=== PATIENT | female | born 1955 | race Caucasian/White ===

== ENCOUNTER 2018-07-26 07:19 | Day surgery (SDC) | payer MEDICARE ==
[2018-07-26] VITALS (16 sets, daily range): BP systolic 135–185; BP diastolic 72–101
[~2018-07-26] VITALS: Ht 172.7 cm; Wt 71.8 kg
[~2018-07-26 07:19] MED LIST: CYAN1TAB41 PO; DOXY100C43 PO; LACT1CAP65 PO; LEVO75TA7 PO; LOPE2CAP PO; MULT-1085 PO; POTA10TA10 PO; SIME125C43 PO; TRAZ-218 PO; [UNRECOGNIZED DRUG - OTHER] PO
[2018-07-26] MEDS ORDERED: normal saline 1000ml 1,000 ML IV PRN (07:40)
[2018-07-26] MEDS ORDERED: ACET-1008 PO (08:08)
[2018-07-26] MEDS ORDERED: ONDA4TAB12 PO (08:08)
[2018-07-26 08:40] LABS: BASOPHILS # (AUTO) 0.1 X10'3 (0-0.2); BASOPHILS % (AUTO) 0.8 % (0-1); EOSINOPHILS # (AUTO) 0.1 X10'3 (0-0.9); EOSINOPHILS % (AUTO) 1.5 % (0-6); LYMPHOCYTES % (AUTO) 16.6 % (21-51); MEAN CORPUSCULAR HEMOGLOBIN 29.8 PG (27.0-31.0); MEAN CORPUSCULAR HGB CONC 33.4 % (33.0-36.5); MEAN CORPUSCULAR VOLUME 89.3 FL (78-98); MEAN PLATELET VOLUME 8.4 FL (7.4-10.4); MONOCYTES # (AUTO) 0.5 X10'3 (0-0.9); MONOCYTES % (AUTO) 7.6 % (2-12); NEUTROPHILS # (AUTO) 4.6 X10'3 (1.8-7.7); NEUTROPHILS % (AUTO) 73.5 % (42-75); PRE OP HEMATOCRIT 41.6 % (35.0-45.0); PRE OP HEMOGLOBIN 13.9 g/dL (12.0-16.0); PRE OP PLATELET COUNT 227 X10'3 (140-440); RED BLOOD COUNT 4.66 X10'6 (4.20-5.60); RED CELL DISTRIBUTION WIDTH 14.7 % (11.5-14.5)
[2018-07-26] MEDS ORDERED: midazolam 2 mg/2 ml injection IV PRN (08:50)
[2018-07-26] MEDS ORDERED: fentaNYL/PF 50MCG/1 ML 2ML syringe IV PRN (08:50)
[2018-07-26 08:55] LABS: ALBUMIN 3.4 G/DL (3.4-5.0); ANION GAP 13 (8-16); BLOOD UREA NITROGEN 9 MG/DL (7-18); BUN/CREATININE RATIO 13.8 (6.6-38.0); CALCIUM 8.7 MG/DL (8.5-10.1); CHLORIDE 106 MMOL/L (99-107); CREATININE 0.65 MG/DL (0.40-0.90); GLUCOSE 101 MG/DL (70-104); POTASSIUM 3.7 MMOL/L (3.5-5.1); SODIUM 142 MMOL/L (135-145); TOTAL CARBON DIOXIDE 23.4 MMOL/L (24-32); eGFR > 90 ML/MIN
[2018-07-26] MEDS ORDERED: midazolam 2 mg/2 ml injection ONE (08:55)
[2018-07-26] MEDS ORDERED: fentaNYL/PF 50MCG/1 ML 2ML syringe ONE (08:55)
[2018-07-26] MEDS ORDERED: LIDOcaine 1% (10mg/ml) 2ml vial ONE (08:56)
== END 2018-07-26 12:36 | disposition home or self-care (01) ==
LOC: SSTAY O 07:19
PROVIDERS: ATTEND Radiology Diagnostic Radiology
DX: C78.01 Secondary malignant neoplasm of right lung (principal); K21.0 Gastro-esophageal reflux disease with esophagitis; Z85.038 Personal history of other malignant neoplasm of large intestine; F17.210 Nicotine dependence, cigarettes, uncomplicated; Z88.6 Allergy status to analgesic agent; Z79.899 Other long term (current) drug therapy; Z98.890 Other specified postprocedural states
CPT/HCPCS: 32405; 36415; 71045; 77012; 80048; 85025; 99152; 99153; J2250; J3010; J3490; J7030; C1729; C1769

== ENCOUNTER 2021-07-06 07:30 | Inpatient (IN) | payer MEDICARE ==
[~2021-07-06] VITALS: Ht 172.7 cm; Wt 68.2 kg
[~2021-07-06 07:30] MED LIST changes: +ACET-1008 PO; -CYAN1TAB41 PO; -DOXY100C43 PO; -LACT1CAP65 PO; -LOPE2CAP PO; -MULT-1085 PO; +ONDA4TAB12 PO; -POTA10TA10 PO; -TRAZ-218 PO; +TRAZ-251 PO; -[UNRECOGNIZED DRUG - OTHER] PO
[2021-07-06 08:27] LABS: ALANINE AMINOTRANSFERASE 31 U/L (12-78); ALBUMIN 3.7 G/DL (3.4-5.0); ALBUMIN/GLOBULIN RATIO 1.1 (1.1-1.5); ALKALINE PHOSPHATASE 68 IU/L (46-116); ANION GAP 10 (8-16); ASPARTATE AMINO TRANSFERASE 18 U/L (10-37); BILIRUBIN,TOTAL 0.5 MG/DL (0.1-1.0); BLOOD UREA NITROGEN 17 MG/DL (7-18); BUN/CREATININE RATIO 16.5 (6.6-38.0); CALCIUM 9.7 MG/DL (8.5-10.1); CHLORIDE 104 MMOL/L (99-107); CREATININE 1.03 MG/DL (0.40-0.90); GLUCOSE 113 MG/DL (70-104); LIPASE 105 U/L (73-393); POTASSIUM 4.3 MMOL/L (3.5-5.1); SODIUM 140 MMOL/L (135-145); TOTAL PROTEIN 7.2 G/DL (6.4-8.2); eGFR 53 ML/MIN
[2021-07-06 08:28] LABS: BASOPHILS # (AUTO) 0.1 X10'3 (0-0.2); BASOPHILS % (AUTO) 1.2 % (0-1); EOSINOPHILS % (AUTO) 0.3 % (0-6); HEMATOCRIT 43.4 % (35.0-45.0); HEMOGLOBIN 14.7 g/dl (12.0-16.0); LYMPHOCYTES # (AUTO) 1.2 X10'3 (1.1-4.8); LYMPHOCYTES % (AUTO) 13.2 % (21-51); MEAN CORPUSCULAR HGB CONC 33.9 g/dL (33.0-36.5); MEAN CORPUSCULAR VOLUME 91.4 FL (78-98); MEAN PLATELET VOLUME 8.5 FL (7.4-10.4); MONOCYTES # (AUTO) 0.7 X10'3 (0-0.9); MONOCYTES % (AUTO) 8.2 % (2-12); NEUTROPHILS # (AUTO) 6.8 X10'3 (1.8-7.7); NEUTROPHILS % (AUTO) 77.1 % (42-75); PLATELET COUNT 254 X10'3 (140-440); RED BLOOD COUNT 4.75 X10'6 (4.20-5.60); RED CELL DISTRIBUTION WIDTH 15.2 % (11.5-14.5); WHITE BLOOD COUNT 8.8 X10'3 (4.5-11.0)
[2021-07-06 08:33] LABS: UA COLLECTION TYPE CLN CATCH MIDSTREAM
[2021-07-06 08:34] LABS: CLARITY,URINE CLOUDY (Clear); COLOR,URINE DARK YELLOW (Yellow); GLUCOSE, URINE NEGATIVE (Neg); KETONES,URINE NEGATIVE (Neg); LEUKOCYTE ESTERASE ,URINE TRACE (Neg); NITRITES, URINE NEGATIVE (Neg); OCCULT BLOOD,URINE NEGATIVE (Neg); PROTEIN,URINE 100 mg/dl (Neg); UROBILINOGEN,URINE 0.2 E.U/dL (0.2-1.0)
[2021-07-06 08:36] LABS: BACTERIA,URINE FEW /HPF (Neg); MUCUS STRANDS MANY /LPF (Neg); RBC,URINE NONE SEEN /HPF (0-2); SQUAMOUS EPITHELIAL CELL,UR FEW /LPF (FEW); WBC,URINE 0-4 /HPF (0-4)
[2021-07-06] MEDS ORDERED: ondansetron/PF 4mg/2ml inj IV ONE (09:00)
[2021-07-06] MEDS ORDERED: morphine 4 MG/ML inj SYRINge IV ONE (09:00)
[2021-07-06] MEDS ORDERED: diatr meglu/diatrizoate 30ml oral sol.-(3 dose) bottle PO SCH (09:00)
[2021-07-06] MEDS ORDERED: ketorolac tromethamine 15mg/ml inj. IV ONE (09:00)
[2021-07-06] MEDS ORDERED: normal saline 1000ML IV soln IVB ONE (09:00)
[2021-07-06] MEDS ORDERED: IOHEXOL 12MG/ML oral solution 500 ML BOTTLE PO ONE (09:25)
[2021-07-06 09:40] LABS: C-REACTIVE PROTEIN 0.12 MG/DL (0.0-0.5)
[2021-07-06] MEDS ORDERED: iohexol 300mg/ml 100ml inj. ONE (11:47)
[2021-07-06] MEDS ORDERED: magnesium 2GM in 50ml NS 50 ML IV PRN (13:05)
[2021-07-06] MEDS ORDERED: potassium Cl 40MEQ/1/2NS 520ml 520 ML IV PRN ×2 (13:05)
[2021-07-06] MEDS ORDERED: magnesium Cl slow-release 64mg tablet PO PRN (13:05)
[2021-07-06] MEDS ORDERED: potassium Cl 20 mEq SR tablet PO PRN ×2 (13:05)
[2021-07-06] MEDS ORDERED: magnesium 4gm in 100ml NS 100 ML IV PRN (13:05)
[2021-07-06] MEDS ORDERED: metoclopramide 5 mg/ml inj IV PRN (13:05)
[2021-07-06] MEDS ORDERED: TRAZ-251 PO (14:22)
[2021-07-06] MEDS ORDERED: LISI40TA13 PO (14:22)
[2021-07-06] MEDS ORDERED: LEVO75TA7 PO (14:22)
--- NOTE | 2021-07-06 17:21 | NUR ---
PAGER ID: [phone] MESSAGE: Samanta Villatorolaquitamati 350A Pt. 06/22 cramping pain in abd. No pain medications ordered. Med req not addressed. Can you change activity order to assist to BC? Any ATB for UTI? Thank you Priscila [id number]
[2021-07-06 17:22] VITALS: BP 144/51
[2021-07-06] MEDS: normal saline 1000ml 1,000 ML IV SCH (17:37)
[2021-07-06] MEDS: CefTRIAXone/D5W-Rocephin 1gm 50 ML IV SCH (17:38)
[2021-07-06] MEDS: HYDROmorphone inj. 0.5 MG/0.5 ML DISP.SYRIN IV PRN ×2 (17:43→23:42)
--- NOTE | 2021-07-06 19:05 | NUR ---
Gave report to Faiaz SMITH
[2021-07-06 19:30] VITALS: BP 143/60
--- NOTE | 2021-07-06 19:30 | NUR ---
n/g tube drainage has scan amt of dark brown drainage in canister & clear light green in tubing Addendum: 07/07/21 at 0153 by Ayesha Harrell RN Amended: Links added.
[2021-07-06] MEDS: K and/or MAG REPLACEMENT MC SCH (20:00)
[2021-07-07] VITALS (28 sets, daily range): BP systolic 110–181; BP diastolic 63–92
[2021-07-07] MEDS: ondansetron/PF 4mg/2ml inj IV PRN ×3 (00:07→15:26)
[2021-07-07] MEDS: normal saline 1000ml 1,000 ML IV SCH ×3 (04:58→19:05)
[2021-07-07] MEDS: HYDROmorphone inj. 0.5 MG/0.5 ML DISP.SYRIN IV PRN ×4 (06:00→20:18)
[2021-07-07 06:18] LABS: PARTIAL THROMBOPLASTIN TIME 27 SECONDS (22-32)
[2021-07-07 06:22] LABS: BASOPHILS % (AUTO) 0.4 % (0-1); EOSINOPHILS # (AUTO) 0.1 X10'3 (0-0.9); EOSINOPHILS % (AUTO) 1.7 % (0-6); HEMATOCRIT 36.3 % (35.0-45.0); HEMOGLOBIN 12.2 g/dl (12.0-16.0); LYMPHOCYTES # (AUTO) 1.2 X10'3 (1.1-4.8); LYMPHOCYTES % (AUTO) 28.1 % (21-51); MEAN CORPUSCULAR HEMOGLOBIN 30.9 PG (27.0-31.0); MEAN CORPUSCULAR HGB CONC 33.7 g/dL (33.0-36.5); MEAN CORPUSCULAR VOLUME 91.8 FL (78-98); MEAN PLATELET VOLUME 8.5 FL (7.4-10.4); MONOCYTES # (AUTO) 0.4 X10'3 (0-0.9); MONOCYTES % (AUTO) 10.8 % (2-12); NEUTROPHILS # (AUTO) 2.4 X10'3 (1.8-7.7); PLATELET COUNT 159 X10'3 (140-440); RED BLOOD COUNT 3.95 X10'6 (4.20-5.60); RED CELL DISTRIBUTION WIDTH 14.8 % (11.5-14.5); WHITE BLOOD COUNT 4.1 X10'3 (4.5-11.0)
[2021-07-07 06:37] LABS: ALANINE AMINOTRANSFERASE 22 U/L (12-78); ALBUMIN 2.6 G/DL (3.4-5.0); ALBUMIN/GLOBULIN RATIO 0.9 (1.1-1.5); ALKALINE PHOSPHATASE 53 IU/L (46-116); ANION GAP 8 (8-16); ASPARTATE AMINO TRANSFERASE 14 U/L (10-37); BILIRUBIN,TOTAL 0.4 MG/DL (0.1-1.0); BLOOD UREA NITROGEN 10 MG/DL (7-18); BUN/CREATININE RATIO 13.7 (6.6-38.0); CALCIUM 8.1 MG/DL (8.5-10.1); CHLORIDE 109 MMOL/L (99-107); CREATININE 0.73 MG/DL (0.40-0.90); GLUCOSE 88 MG/DL (70-104); POTASSIUM 3.8 MMOL/L (3.5-5.1); SODIUM 142 MMOL/L (135-145); TOTAL CARBON DIOXIDE 24.7 MMOL/L (24-32); TOTAL PROTEIN 5.4 G/DL (6.4-8.2); eGFR 79 ML/MIN
--- NOTE | 2021-07-07 06:48 | NUR ---
Patient in room [facility]. I have received report from LUIS Rodriguez and had the opportunity to ask questions and assume patient care. Addendum: 07/07/21 at 0650 by Melissa ADAMS Patient in room [facility]. I have received report from Faiza and had the opportunity to ask questions and assume patient care.
[2021-07-07] MEDS: K and/or MAG REPLACEMENT MC SCH ×2 (08:00→20:00)
[2021-07-07] MEDS: CefTRIAXone/D5W-Rocephin 1gm 50 ML IV SCH (09:09)
--- NOTE | 2021-07-07 14:32 | NUR ---
Patient taken down to OR. Report given to BREAKFAST MANAGER.
[2021-07-07] MEDS ORDERED: midazolam 1 mg/ML 2ml injection ONE (15:55)
[2021-07-07] MEDS ORDERED: fentaNYL /PF 50mcg/ml 5ml ampule ONE (15:55)
[2021-07-07] MEDS ORDERED: LIDOcaine 2% (20mg/ml) 5ml vial ONE (16:10)
[2021-07-07] MEDS ORDERED: rocuronium 10mg/ml inj IV ONE (16:10)
[2021-07-07] MEDS ORDERED: propofol inj 20 ML IV ONE (16:10)
[2021-07-07] MEDS ORDERED: ondansetron/PF 4mg/2ml inj IV PRN (16:50)
[2021-07-07] MEDS ORDERED: meperidine/PF 25mg/ml syringe IV PRN ×2 (16:50)
[2021-07-07] MEDS ORDERED: ringers solution, lacted 1,000 ML IV SCH (16:50)
[2021-07-07] MEDS ORDERED: proCHLORperazine 10 MG/2 ml inj IV PRN (16:50)
[2021-07-07] MEDS ORDERED: morphine 4 MG/ML inj SYRINge IV PRN (16:50)
[2021-07-07] MEDS ORDERED: morphine 2 MG/ML inj. syringe IV PRN (16:50)
[2021-07-07] MEDS ORDERED: sugammadex 200mg/2ml injection IV ONE (17:12)
--- NOTE | 2021-07-07 17:15 | NUR ---
Received from OR via , accompanied by Anesthesiologist DR BALLESTEROS and report given by Anesthesiolgist. PT PRESENTS WITH NEW 20 G RIGHT FOREARM, ABD DRESSING DRY AND INTACT. VSS. Addendum: 07/07/21 at 1738 by Josefina Evans RN, RN Amended: Links added.
[2021-07-07] MEDS: meperidine/PF 25mg/ml syringe IV PRN ×4 (17:39→18:45)
--- NOTE | 2021-07-07 18:25 | NUR ---
Problems reprioritized. Patient report given, questions answered & plan of care reviewed with LUIS Davalos.
--- NOTE | 2021-07-07 18:38 | NUR ---
Problems reprioritized. Patient report given, questions answered & plan of care reviewed with Robert Davalos.
--- NOTE | 2021-07-07 18:39 | NUR ---
Student documentation: I have reviewed and agree with all interventions, assessments performed and documented by SN Kaela. Student Medication Administration: For this medication-pass time frame, all medication were reviewed, dispensed, administered and documented per hospital policy by SN Kaela.
--- NOTE | 2021-07-07 19:35 | NUR ---
Patient in room [facility]. I have received report from Josefina SMITH and had the opportunity to ask questions and assume patient care.
--- NOTE | 2021-07-07 19:55 | NUR ---
Report called to receiving nurse CHAPIS SMITH. Transferred via HOSPITAL BED,Belongings WERE LEFT IN PT ROOM 350A. PT BED LOCKED AND IN LOW POSITION, PT HAS CALL LIGHT. CHAPIS SMITH AT BEDSIDE.. Special Issues communicated to receiving nurse. Addendum: 07/07/21 at 2006 by Josefina Evans RN, RN Amended: Links added.
[2021-07-07] MEDS: traZODone 50mg tablet PO SCH (20:19)
--- NOTE | 2021-07-07 23:23 | NUR ---
administered dilaudid as ordered at 2014 along with trazodone, though eMAR does not show that it was scanned. will administer the next dose as needed after 14
[2021-07-08 00:15] VITALS: BP 162/72
[2021-07-08] MEDS: ondansetron/PF 4mg/2ml inj IV PRN ×2 (00:26→16:01)
[2021-07-08] MEDS: HYDROmorphone inj. 0.5 MG/0.5 ML DISP.SYRIN IV PRN (00:26)
[2021-07-08] MEDS: normal saline 1000ml 1,000 ML IV SCH ×3 (02:36→15:09)
[2021-07-08] MEDS: HYDROmorphone 1 mg/ml syringe IV PRN ×3 (04:14→15:50)
[2021-07-08 06:50] LABS: BASOPHILS % (AUTO) 0.2 % (0-1); EOSINOPHILS % (AUTO) 0 % (0-6); HEMATOCRIT 36.7 % (35.0-45.0); HEMOGLOBIN 12.3 g/dl (12.0-16.0); LYMPHOCYTES # (AUTO) 0.5 X10'3 (1.1-4.8); LYMPHOCYTES % (AUTO) 5.6 % (21-51); MEAN CORPUSCULAR HEMOGLOBIN 30.9 PG (27.0-31.0); MEAN CORPUSCULAR HGB CONC 33.4 g/dL (33.0-36.5); MEAN CORPUSCULAR VOLUME 92.5 FL (78-98); MEAN PLATELET VOLUME 8.5 FL (7.4-10.4); MONOCYTES # (AUTO) 0.7 X10'3 (0-0.9); MONOCYTES % (AUTO) 7.6 % (2-12); NEUTROPHILS # (AUTO) 8.4 X10'3 (1.8-7.7); NEUTROPHILS % (AUTO) 86.6 % (42-75); PLATELET COUNT 165 X10'3 (140-440); RED BLOOD COUNT 3.97 X10'6 (4.20-5.60); RED CELL DISTRIBUTION WIDTH 15.4 % (11.5-14.5); WHITE BLOOD COUNT 9.7 X10'3 (4.5-11.0)
--- NOTE | 2021-07-08 06:59 | NUR ---
Problems reprioritized. Patient report given, questions answered & plan of care reviewed with Priscila SMITH.
[2021-07-08] MEDS ORDERED: HYDROmorphone 1 mg/ml syringe IV ONE (07:00)
[2021-07-08 07:05] LABS: ALBUMIN 2.5 G/DL (3.4-5.0); ANION GAP 12 (8-16); BLOOD UREA NITROGEN 7 MG/DL (7-18); BUN/CREATININE RATIO 10.1 (6.6-38.0); CALCIUM 7.7 MG/DL (8.5-10.1); CHLORIDE 110 MMOL/L (99-107); CREATININE 0.69 MG/DL (0.40-0.90); GLUCOSE 93 MG/DL (70-104); MAGNESIUM 1.8 MG/DL (1.5-2.4); POTASSIUM 3.7 MMOL/L (3.5-5.1); SODIUM 143 MMOL/L (135-145); TOTAL CARBON DIOXIDE 20.7 MMOL/L (24-32); eGFR 85 ML/MIN
[2021-07-08 08:00] VITALS: BP 135/63
[2021-07-08] MEDS: K and/or MAG REPLACEMENT MC SCH ×2 (08:00→20:00)
--- NOTE | 2021-07-08 08:09 | NUR ---
Rounded with Dr Winchester he would like me to check patient NG tube placement. Dr Winchester also stated that patient could have sips and chips. Informed primary LUIS Francois . Patients NG tube placement good I also irrigated with 30CC water and NG now has fluid coming out and working well. Primary RN Priscila is aware.
[2021-07-08] MEDS: levoTHYROXINE 75mcg tablet PO SCH (08:49)
[2021-07-08] MEDS: lisinopril 20mg tablet PO SCH (08:49)
--- NOTE | 2021-07-08 08:58 | NUR ---
PAGER ID: [phone] MESSAGE: May I please have a throat spray and cough drop order for 350A Samanta Lovell. She is complaining of sever sore throat. Priscila [id number]
[2021-07-08] MEDS: CefTRIAXone/D5W-Rocephin 1gm 50 ML IV SCH (10:37)
[2021-07-08 11:00] VITALS: BP 138/68
[2021-07-08] MEDS ORDERED: Chloraseptic (Phenol) Spray 177ml MM PRN (12:15)
[2021-07-08] MEDS: benzocaine/menthol oral lozeng 1 EACH BOX MM PRN ×2 (13:26→20:01)
--- NOTE | 2021-07-08 15:18 | NUR ---
F/c DC'd. Pt. tolerated well. Educated to use call light for assist to bathroom when needed.
--- NOTE | 2021-07-08 18:38 | NUR ---
Gave report to Anoop SMITH.
--- NOTE | 2021-07-08 18:49 | NUR ---
Patient in room [facility]. I have received report from Priscila SMITH and had the opportunity to ask questions and assume patient care.
[2021-07-08] MEDS: lactobacillus rhamnosus 10,000 MMU CELLS/CAPSULE PO SCH (19:52)
[2021-07-08] MEDS: traZODone 50mg tablet PO SCH (20:00)
[2021-07-08 20:09] VITALS: BP 148/65
[2021-07-08] MEDS ORDERED: LIDOCAINE 5% OINTMENT 35GM TP ONE (21:40)
--- NOTE | 2021-07-08 23:03 | NUR ---
IV port accessed using a gould needle sterile. Good blood return. Dressed with sterri strips and transparent dressing.
[2021-07-08] MEDS: ketorolac tromethamine 15mg/ml inj. IV PRN (23:25)
--- NOTE | 2021-07-09 03:49 | NUR ---
Student documentation: I have reviewed and agree with all interventions, assessments performed and documented by Aroldo LAYTON.
[2021-07-09] MEDS: normal saline 1000ml 1,000 ML IV SCH ×3 (05:49→16:20)
[2021-07-09 06:21] LABS: BASOPHILS # (AUTO) 0.1 X10'3 (0-0.2); BASOPHILS % (AUTO) 0.7 % (0-1); EOSINOPHILS % (AUTO) 0.1 % (0-6); HEMATOCRIT 30.9 % (35.0-45.0); HEMOGLOBIN 10.7 g/dl (12.0-16.0); LYMPHOCYTES # (AUTO) 0.7 X10'3 (1.1-4.8); LYMPHOCYTES % (AUTO) 9.4 % (21-51); MEAN CORPUSCULAR HEMOGLOBIN 31.1 PG (27.0-31.0); MEAN CORPUSCULAR HGB CONC 34.5 g/dL (33.0-36.5); MEAN CORPUSCULAR VOLUME 90.3 FL (78-98); MEAN PLATELET VOLUME 8.5 FL (7.4-10.4); MONOCYTES # (AUTO) 0.7 X10'3 (0-0.9); NEUTROPHILS # (AUTO) 6.4 X10'3 (1.8-7.7); NEUTROPHILS % (AUTO) 80.8 % (42-75); PLATELET COUNT 147 X10'3 (140-440); RED BLOOD COUNT 3.42 X10'6 (4.20-5.60); RED CELL DISTRIBUTION WIDTH 15.1 % (11.5-14.5); WHITE BLOOD COUNT 7.9 X10'3 (4.5-11.0)
[2021-07-09 06:24] LABS: ALBUMIN 2.2 G/DL (3.4-5.0); ANION GAP 10 (8-16); BLOOD UREA NITROGEN 11 MG/DL (7-18); BUN/CREATININE RATIO 16.9 (6.6-38.0); CHLORIDE 110 MMOL/L (99-107); CREATININE 0.65 MG/DL (0.40-0.90); GLUCOSE 95 MG/DL (70-104); POTASSIUM 3.4 MMOL/L (3.5-5.1); SODIUM 143 MMOL/L (135-145); TOTAL CARBON DIOXIDE 22.6 MMOL/L (24-32); eGFR > 90 ML/MIN
--- NOTE | 2021-07-09 06:57 | NUR ---
Problems reprioritized. Patient report given, questions answered & plan of care reviewed with Cherelle SMITH.
[2021-07-09 07:00] VITALS: BP 132/66
--- NOTE | 2021-07-09 07:05 | NUR ---
Patient in room [facility]. I have received report from LUIS Davalos and had the opportunity to ask questions and assume patient care.
[2021-07-09] MEDS: ketorolac tromethamine 15mg/ml inj. IV PRN ×2 (07:32→19:26)
[2021-07-09] MEDS: lactobacillus rhamnosus 10,000 MMU CELLS/CAPSULE PO SCH ×2 (07:32→19:25)
[2021-07-09] MEDS: levoTHYROXINE 75mcg tablet PO SCH (07:32)
[2021-07-09] MEDS: lisinopril 20mg tablet PO SCH (07:33)
[2021-07-09] MEDS: CefTRIAXone/D5W-Rocephin 1gm 50 ML IV SCH (07:33)
[2021-07-09] MEDS: K and/or MAG REPLACEMENT MC SCH ×3 (07:45→20:00)
[2021-07-09 12:00] VITALS: BP 153/90
[2021-07-09] MEDS: ondansetron/PF 4mg/2ml inj IV PRN (12:19)
[2021-07-09] MEDS: HYDROmorphone 1 mg/ml syringe IV PRN (12:20)
--- NOTE | 2021-07-09 13:52 | NUR ---
Patient refusing to have packing taken out. Patient states she is tired as she has not been able to sleep due to room mate. Roomamate now dc'd patient wanting to sleep before packing taken out. Will continue to monitor.
[2021-07-09] MEDS ORDERED: magnesium Cl slow-release 64mg tablet PO PRN (16:20)
[2021-07-09] MEDS ORDERED: magnesium 4gm in 100ml NS 100 ML IV PRN (16:20)
[2021-07-09] MEDS ORDERED: potassium Cl 40MEQ/1/2NS 520ml 520 ML IV PRN (16:20)
[2021-07-09] MEDS ORDERED: potassium Cl 20 mEq SR tablet PO PRN (16:20)
[2021-07-09] MEDS ORDERED: magnesium 2GM in 50ml NS 50 ML IV PRN (16:20)
[2021-07-09] MEDS: potassium Cl 20 mEq SR tablet PO PRN ×2 (16:26→21:31)
--- NOTE | 2021-07-09 19:02 | NUR ---
Problems reprioritized. Patient report given, questions answered & plan of care reviewed with Robert Pizano.
[2021-07-09 20:00] VITALS: BP 117/48
[2021-07-09] MEDS: traZODone 50mg tablet PO SCH (21:31)
[2021-07-10] VITALS: BP 124/63
[2021-07-10] MEDS: HYDROmorphone 1 mg/ml syringe IV PRN ×2 (00:14→07:47)
[2021-07-10] MEDS: normal saline 1000ml 1,000 ML IV SCH (01:04)
--- NOTE | 2021-07-10 06:53 | NUR ---
Patient in room [facility]. I have received report from LUIS Alas and had the opportunity to ask questions and assume patient care.
[2021-07-10 07:30] VITALS: BP 125/62
[2021-07-10] MEDS: lisinopril 20mg tablet PO SCH (07:36)
[2021-07-10] MEDS: levoTHYROXINE 75mcg tablet PO SCH (07:36)
[2021-07-10] MEDS: lactobacillus rhamnosus 10,000 MMU CELLS/CAPSULE PO SCH (07:39)
[2021-07-10] MEDS: CefTRIAXone/D5W-Rocephin 1gm 50 ML IV SCH (07:45)
[2021-07-10] MEDS: K and/or MAG REPLACEMENT MC SCH ×2 (08:00)
--- NOTE | 2021-07-10 08:04 | NUR ---
PAGER ID: [phone] MESSAGE: 350A- Audi Lovell- has been on IV dilaudid and Toradol. Do you want to try PO pain med for home? None ordered. Allergic to codeine and hydrocodone. Has Tramadol that she takes at home. Thank you- Cherelle 1850
[2021-07-10] MEDS ORDERED: traMADol 50MG tablet PO PRN (08:50)
[2021-07-10 10:33] VITALS: BP 126/58
[2021-07-10 11:37] LABS: BASOPHILS % (AUTO) 0.8 % (0-1); EOSINOPHILS # (AUTO) 0.1 X10'3 (0-0.9); EOSINOPHILS % (AUTO) 1.7 % (0-6); HEMATOCRIT 28.2 % (35.0-45.0); HEMOGLOBIN 9.4 g/dl (12.0-16.0); LYMPHOCYTES # (AUTO) 0.7 X10'3 (1.1-4.8); LYMPHOCYTES % (AUTO) 13.5 % (21-51); MEAN CORPUSCULAR HEMOGLOBIN 30.9 PG (27.0-31.0); MEAN CORPUSCULAR HGB CONC 33.5 g/dL (33.0-36.5); MEAN CORPUSCULAR VOLUME 92.2 FL (78-98); MEAN PLATELET VOLUME 8.2 FL (7.4-10.4); MONOCYTES # (AUTO) 0.4 X10'3 (0-0.9); MONOCYTES % (AUTO) 7.8 % (2-12); NEUTROPHILS % (AUTO) 76.2 % (42-75); PLATELET COUNT 134 X10'3 (140-440); RED BLOOD COUNT 3.06 X10'6 (4.20-5.60); RED CELL DISTRIBUTION WIDTH 15.2 % (11.5-14.5); WHITE BLOOD COUNT 5.3 X10'3 (4.5-11.0)
[2021-07-10 11:48] LABS: ALBUMIN 1.9 G/DL (3.4-5.0); ANION GAP 9 (8-16); BLOOD UREA NITROGEN 7 MG/DL (7-18); BUN/CREATININE RATIO 13.5 (6.6-38.0); CALCIUM 7.4 MG/DL (8.5-10.1); CHLORIDE 111 MMOL/L (99-107); CREATININE 0.52 MG/DL (0.40-0.90); GLUCOSE 96 MG/DL (70-104); MAGNESIUM 1.9 MG/DL (1.5-2.4); POTASSIUM 3.9 MMOL/L (3.5-5.1); SODIUM 142 MMOL/L (135-145); TOTAL CARBON DIOXIDE 22.4 MMOL/L (24-32); eGFR > 90 ML/MIN
[2021-07-10] MEDS ORDERED: heparin sodium, porcine/PF 100unit/ml 5ML syringe IV SCH (13:10)
--- NOTE | 2021-07-10 13:54 | NUR ---
Port a cath deaccessed by LUIS Pal.
--- NOTE | 2021-07-10 16:40 | NUR ---
Patient alert and oriented in no apparent distress with no complaints. Discussed with patient discharge instructions. Patient verbalizes understanding of discharge teaching. Patient dc'd with all personal belongings escorted out in wheelchair.
== END 2021-07-10 16:42 | disposition home or self-care (01) | DRG 331 ==
LOC: ER 07:30 → ED HOLD 13:07 → SUR 3N 16:40
PROVIDERS: ADMIT Internal Medicine; ATTEND Internal Medicine
PROC: 0D9670Z Drainage of Stomach with Drainage Device, Via Natural or Artificial Opening (ICD-10-PCS; 2021-07-06)
PROC: BW211ZZ Computerized Tomography (CT Scan) of Abdomen and Pelvis using Low Osmolar Contrast (ICD-10-PCS; 2021-07-06)
PROC: 0DBB0ZZ Excision of Ileum, Open Approach (ICD-10-PCS; 2021-07-07)
PROC: 0WQF0ZZ Repair Abdominal Wall, Open Approach (ICD-10-PCS; principal; 2021-07-07 15:46)
DX: K56.690 Other partial intestinal obstruction (principal); E03.9 Hypothyroidism, unspecified; F17.210 Nicotine dependence, cigarettes, uncomplicated; Z20.822 Contact with and (suspected) exposure to COVID-19; E11.9 Type 2 diabetes mellitus without complications; I10 Essential (primary) hypertension; G47.00 Insomnia, unspecified; K46.9 Unspecified abdominal hernia without obstruction or gangrene; Z83.3 Family history of diabetes mellitus; Z82.49 Family history of ischemic heart disease and other diseases of the circulatory system; Z92.3 Personal history of irradiation; Z92.21 Personal history of antineoplastic chemotherapy; Z90.49 Acquired absence of other specified parts of digestive tract; Z88.5 Allergy status to narcotic agent; Z85.038 Personal history of other malignant neoplasm of large intestine
CPT/HCPCS: 36415; 71045; 74018; 74177; 80048; 80053; 81001; 82948; 83605; 83690; 83735; 84145; 85025; 85610; 85730; 86140; 87081; 87088; 87635; 88309; 88341; 88342; 93005; 96361; 96374; 96375; 99285; A4618; A6266; A7000; C1758; C9399; G0378; J0696; J1170; J1642; J1885; J2001; J2175; J2250; J2270; J2405; J2704; J2765; J3010; J7030; J7120; Q9963; Q9967

== ENCOUNTER 2021-07-17 11:51 | Inpatient (IN) | payer MEDICARE ==
[~2021-07-17] VITALS: Ht 167.6 cm; Wt 68.2 kg
[~2021-07-17 11:51] MED LIST changes: -ACET-1008 PO; +LISI40TA13 PO; -ONDA4TAB12 PO; -SIME125C43 PO
[2021-07-17] MEDS ORDERED: normal saline 1000ML IV soln IVB ONE (13:35)
[2021-07-17 14:14] LABS: BASOPHILS # (AUTO) 0.1 X10'3 (0-0.2); BASOPHILS % (AUTO) 0.7 % (0-1); EOSINOPHILS # (AUTO) 0.1 X10'3 (0-0.9); EOSINOPHILS % (AUTO) 1.1 % (0-6); HEMATOCRIT 35.4 % (35.0-45.0); HEMOGLOBIN 11.8 g/dl (12.0-16.0); LYMPHOCYTES # (AUTO) 1.3 X10'3 (1.1-4.8); LYMPHOCYTES % (AUTO) 13.6 % (21-51); MEAN CORPUSCULAR HEMOGLOBIN 29.9 PG (27.0-31.0); MEAN CORPUSCULAR HGB CONC 33.4 g/dL (33.0-36.5); MEAN CORPUSCULAR VOLUME 89.5 FL (78-98); MEAN PLATELET VOLUME 8.5 FL (7.4-10.4); MONOCYTES # (AUTO) 0.9 X10'3 (0-0.9); MONOCYTES % (AUTO) 9.5 % (2-12); NEUTROPHILS # (AUTO) 6.9 X10'3 (1.8-7.7); NEUTROPHILS % (AUTO) 75.1 % (42-75); PLATELET COUNT 385 X10'3 (140-440); RED BLOOD COUNT 3.96 X10'6 (4.20-5.60); RED CELL DISTRIBUTION WIDTH 15.3 % (11.5-14.5); WHITE BLOOD COUNT 9.2 X10'3 (4.5-11.0)
[2021-07-17 14:35] LABS: ALANINE AMINOTRANSFERASE 29 U/L (12-78); ALBUMIN 2.4 G/DL (3.4-5.0); ALBUMIN/GLOBULIN RATIO 0.7 (1.1-1.5); ALKALINE PHOSPHATASE 75 IU/L (46-116); ANION GAP 14 (8-16); ASPARTATE AMINO TRANSFERASE 23 U/L (10-37); BILIRUBIN,TOTAL 0.4 MG/DL (0.1-1.0); BLOOD UREA NITROGEN 11 MG/DL (7-18); BUN/CREATININE RATIO 16.2 (6.6-38.0); CALCIUM 8.4 MG/DL (8.5-10.1); CHLORIDE 108 MMOL/L (99-107); CREATININE 0.68 MG/DL (0.40-0.90); GLUCOSE 95 MG/DL (70-104); SODIUM 143 MMOL/L (135-145); TOTAL CARBON DIOXIDE 20.8 MMOL/L (24-32); eGFR 86 ML/MIN
[2021-07-17] MEDS ORDERED: aspirin 81mg tab.chew PO ONE (14:50)
[2021-07-17] MEDS ORDERED: nitroGLYCERIN 0.2mg/hour patch TD ONE (14:50)
--- NOTE | 2021-07-17 14:52 | NUR ---
DR BONILLA AWARE OF ABNORMAL LABS POTASSIUM 3.0 TROP 160
[2021-07-17 14:53] LABS: D-DIMER 2.11 MG/L FEU (0-0.50)
[2021-07-17] MEDS ORDERED: magnesium 2GM in 50ml NS 50 ML IV ONE (15:00)
[2021-07-17] MEDS ORDERED: potassium Cl 10 mEq/100mL bag IV ONE (15:00)
[2021-07-17 15:25] LABS: CLARITY,URINE SLIGHTLY CLOUDY (Clear); COLOR,URINE YELLOW (Yellow); GLUCOSE, URINE NEGATIVE (Neg); KETONES,URINE 40 mg/dl (Neg); LEUKOCYTE ESTERASE ,URINE NEGATIVE (Neg); NITRITES, URINE NEGATIVE (Neg); OCCULT BLOOD,URINE NEGATIVE (Neg); PROTEIN,URINE 100 mg/dl (Neg); UA COLLECTION TYPE VOIDED; UROBILINOGEN,URINE 0.2 E.U/dL (0.2-1.0)
[2021-07-17 15:30] LABS: BACTERIA,URINE NONE SEEN /HPF (Neg); MUCUS STRANDS MODERATE /LPF (Neg); RBC,URINE NONE SEEN /HPF (0-2); SQUAMOUS EPITHELIAL CELL,UR FEW /LPF (FEW); WBC,URINE 0-4 /HPF (0-4)
[2021-07-17] MEDS ORDERED: iohexol 350MG/ML 100ml bottle IV ONE (15:32)
[2021-07-17 15:35] LABS: PARTIAL THROMBOPLASTIN TIME 28 SECONDS (22-32)
[2021-07-17] MEDS ORDERED: heparin 10,000 units/1 ML INJ IV PRN (16:45)
[2021-07-17] MEDS ORDERED: heparin 10,000 units/1 ML INJ IV ONE ×2 (16:45→16:55)
[2021-07-17] MEDS: heparin 25,000 UNIT/250ml bag 250 ML IV SCH (16:55)
[2021-07-17 16:58] LABS: MAGNESIUM 1.7 MG/DL (1.5-2.4)
[2021-07-17] MEDS ORDERED: TRAM50TA2 PO (16:58)
[2021-07-17] MEDS ORDERED: acetaminophen 650mg rectal suppository RC PRN (18:30)
[2021-07-17] MEDS ORDERED: magnesium 2GM in 50ml NS 50 ML IV PRN (18:30)
[2021-07-17] MEDS ORDERED: mag hydrox/Alum hydrox/simeth 30ml oral suspension PO PRN (18:30)
[2021-07-17] MEDS ORDERED: ondansetron/PF 4mg/2ml inj IV PRN (18:30)
[2021-07-17] MEDS: atorvastatin 20mg tablet PO SCH (18:30)
[2021-07-17] MEDS ORDERED: diphenhydrAMINE 25mg capsule PO PRN (18:30)
[2021-07-17] MEDS ORDERED: magnesium hydroxide 30ml (MOM) UD suspension PO PRN (18:30)
[2021-07-17] MEDS ORDERED: acetaminophen 325mg tablet PO PRN (18:30)
[2021-07-17] MEDS ORDERED: bisacodyl 10mg suppository rectal RC PRN (18:30)
[2021-07-17] MEDS: normal saline 1000ml 1,000 ML IV SCH ×2 (18:30→21:17)
[2021-07-17] MEDS ORDERED: potassium Cl 20 mEq SR tablet PO PRN (18:30)
[2021-07-17] MEDS ORDERED: potassium Cl 40MEQ/1/2NS 520ml 520 ML IV PRN ×2 (18:30)
[2021-07-17] MEDS ORDERED: magnesium Cl slow-release 64mg tablet PO PRN (18:30)
[2021-07-17] MEDS ORDERED: magnesium 4gm in 100ml NS 100 ML IV PRN (18:30)
[2021-07-17 19:19] LABS: HEMOGLOBIN A1C 5.4 % (4.5-6.2)
[2021-07-17] MEDS: docusate sod 100mg capsule PO SCH (20:00)
[2021-07-17] MEDS: K and/or MAG REPLACEMENT MC SCH (20:00)
[2021-07-17] MEDS: carVEDilol 3.125mg tablet PO SCH (20:17)
[2021-07-17] MEDS: traMADol 50MG tablet PO PRN (20:18)
[2021-07-17] MEDS: traZODone 50mg tablet PO SCH (21:16)
[2021-07-18] MEDS: acetaminophen 325mg tablet PO PRN ×2 (01:29→20:12)
[2021-07-18 02:04] LABS: BASOPHILS # (AUTO) 0.1 X10'3 (0-0.2); EOSINOPHILS # (AUTO) 0.1 X10'3 (0-0.9); EOSINOPHILS % (AUTO) 1.9 % (0-6); MEAN CORPUSCULAR HEMOGLOBIN 29.9 PG (27.0-31.0); MEAN CORPUSCULAR HGB CONC 33.4 g/dL (33.0-36.5); MEAN CORPUSCULAR VOLUME 89.6 FL (78-98); MEAN PLATELET VOLUME 8.1 FL (7.4-10.4); MONOCYTES # (AUTO) 0.6 X10'3 (0-0.9); MONOCYTES % (AUTO) 8.8 % (2-12); NEUTROPHILS # (AUTO) 5.3 X10'3 (1.8-7.7); NEUTROPHILS % (AUTO) 74.3 % (42-75); PLATELET COUNT 342 X10'3 (140-440); RED BLOOD COUNT 3.68 X10'6 (4.20-5.60); RED CELL DISTRIBUTION WIDTH 15.6 % (11.5-14.5); WHITE BLOOD COUNT 7.1 X10'3 (4.5-11.0)
[2021-07-18 02:24] LABS: ALANINE AMINOTRANSFERASE 33 U/L (12-78); ALBUMIN 2.1 G/DL (3.4-5.0); ALBUMIN/GLOBULIN RATIO 0.6 (1.1-1.5); ALKALINE PHOSPHATASE 86 IU/L (46-116); ANION GAP 13 (8-16); ASPARTATE AMINO TRANSFERASE 23 U/L (10-37); BILIRUBIN,TOTAL 0.4 MG/DL (0.1-1.0); BLOOD UREA NITROGEN 7 MG/DL (7-18); BUN/CREATININE RATIO 11.1 (6.6-38.0); CALCIUM 7.7 MG/DL (8.5-10.1); CHLORIDE 109 MMOL/L (99-107); CHOL/HDL RATIO 3.4 (0.00-4.99); CHOLESTEROL 124 MG/DL (0-200); CREATININE 0.63 MG/DL (0.40-0.90); GLUCOSE 95 MG/DL (70-104); HDL CHOLESTEROL 36 MG/DL (35-60); LDL CHOLESTEROL 64 MG/DL (50-100); PHOSPHORUS 3.1 MG/DL (2.3-4.5); SODIUM 142 MMOL/L (135-145); TOTAL CARBON DIOXIDE 19.9 MMOL/L (24-32); TOTAL PROTEIN 5.4 G/DL (6.4-8.2); TRIGLYCERIDES 140 MG/DL (20-135); eGFR > 90 ML/MIN
[2021-07-18 02:30] LABS: POTASSIUM 2.9 MMOL/L (3.5-5.1)
--- NOTE | 2021-07-18 02:35 | NUR ---
pt reports mild sob. SPO2 on room air 95%. pt repositioned and sat up. pt complains of mild anxiety and does not suffer from anxiety at home. pt was reassured and heparin stopped for ptt redraw. will continue to reasses. no s/s of distress and patient is laying comfortably in bed
--- NOTE | 2021-07-18 02:37 | NUR ---
critical lab value k+ 2.9, trop md karime Carbajal notified.
[2021-07-18] MEDS: potassium Cl 20 mEq SR tablet PO PRN ×3 (03:15→17:34)
[2021-07-18] MEDS: docusate sod 100mg capsule PO SCH ×2 (08:00→20:00)
[2021-07-18] MEDS ORDERED: metoprolol succinate 25mg (24-HOUR) SR. Tablet PO SCH ×2 (08:00→20:00)
[2021-07-18] MEDS: K and/or MAG REPLACEMENT MC SCH ×2 (08:00→20:00)
[2021-07-18] MEDS: carVEDilol 3.125mg tablet PO SCH (08:29)
[2021-07-18] MEDS: atorvastatin 20mg tablet PO SCH (08:29)
[2021-07-18] MEDS: aspirin 81mg, enteric-coated 1 TAB TABLET.DR PO SCH (08:29)
[2021-07-18] MEDS: lisinopril 20mg tablet PO SCH (08:33)
[2021-07-18] MEDS: clopidogrel 75mg tablet PO SCH (08:38)
[2021-07-18] MEDS: levoTHYROXINE 75mcg tablet PO SCH (08:38)
[2021-07-18] MEDS: traMADol 50MG tablet PO PRN ×2 (08:48→15:53)
--- NOTE | 2021-07-18 10:36 | NUR ---
called the lab and asked if they have recived cardiac ptt bld sample which is due at 0925 as per lab they are sending someone rgt now as it is not drawn yet.
[2021-07-18] MEDS: normal saline 1000ml 1,000 ML IV SCH (11:30)
--- NOTE | 2021-07-18 13:30 | NUR ---
PT SITTING UP IN BED AND EATING HER LUNCH AT THIS TIME ,WILL CONT TO MONITOR.
[2021-07-18 18:00] VITALS: BP 149/88
--- NOTE | 2021-07-18 18:15 | NUR ---
Patient in room PCU 3016. I have received report from LUIS oJhnson and had the opportunity to ask questions and assume patient care.
--- NOTE | 2021-07-18 18:42 | NUR ---
Dr Martin was informed of STAT EKG result. No new orders at this time. Addendum: 07/18/21 at 2303 by Maile Mauricio RN Wrong patient.
[2021-07-18] MEDS: traZODone 50mg tablet PO SCH (20:11)
[2021-07-18 22:00] VITALS: BP 140/90
[2021-07-19] VITALS (14 sets, daily range): BP systolic 139–171; BP diastolic 74–103
[2021-07-19] MEDS: heparin 25,000 UNIT/250ml bag 250 ML IV SCH (00:50)
[2021-07-19] MEDS: traMADol 50MG tablet PO PRN ×4 (01:14→21:47)
--- NOTE | 2021-07-19 06:05 | NUR ---
Problems reprioritized. Patient report given, questions answered & plan of care reviewed with LUIS Rodas.
--- NOTE | 2021-07-19 06:10 | NUR ---
Problems reprioritized. Patient report given, questions answered & plan of care reviewed with LUIS Rodas.
[2021-07-19 06:47] LABS: BASOPHILS # (AUTO) 0.1 X10'3 (0-0.2); BASOPHILS % (AUTO) 0.6 % (0-1); EOSINOPHILS # (AUTO) 0.1 X10'3 (0-0.9); EOSINOPHILS % (AUTO) 0.7 % (0-6); HEMOGLOBIN 11.6 g/dl (12.0-16.0); LYMPHOCYTES # (AUTO) 1.1 X10'3 (1.1-4.8); LYMPHOCYTES % (AUTO) 11.9 % (21-51); MEAN CORPUSCULAR HEMOGLOBIN 30.3 PG (27.0-31.0); MEAN CORPUSCULAR HGB CONC 34.2 g/dL (33.0-36.5); MEAN CORPUSCULAR VOLUME 88.6 FL (78-98); MEAN PLATELET VOLUME 8.5 FL (7.4-10.4); MONOCYTES # (AUTO) 0.6 X10'3 (0-0.9); MONOCYTES % (AUTO) 6.8 % (2-12); NEUTROPHILS # (AUTO) 7.6 X10'3 (1.8-7.7); PLATELET COUNT 409 X10'3 (140-440); RED BLOOD COUNT 3.83 X10'6 (4.20-5.60); RED CELL DISTRIBUTION WIDTH 15.4 % (11.5-14.5); WHITE BLOOD COUNT 9.5 X10'3 (4.5-11.0)
[2021-07-19 07:06] LABS: ALANINE AMINOTRANSFERASE 80 U/L (12-78); ALBUMIN 2.5 G/DL (3.4-5.0); ALBUMIN/GLOBULIN RATIO 0.7 (1.1-1.5); ALKALINE PHOSPHATASE 185 IU/L (46-116); ANION GAP 10 (8-16); ASPARTATE AMINO TRANSFERASE 48 U/L (10-37); BILIRUBIN,TOTAL 0.3 MG/DL (0.1-1.0); BLOOD UREA NITROGEN 12 MG/DL (7-18); BUN/CREATININE RATIO 16.2 (6.6-38.0); CALCIUM 8.7 MG/DL (8.5-10.1); CHLORIDE 111 MMOL/L (99-107); CREATININE 0.74 MG/DL (0.40-0.90); GLUCOSE 108 MG/DL (70-104); PHOSPHORUS 3.4 MG/DL (2.3-4.5); POTASSIUM 4.7 MMOL/L (3.5-5.1); SODIUM 142 MMOL/L (135-145); TOTAL CARBON DIOXIDE 21.5 MMOL/L (24-32); TOTAL PROTEIN 6.1 G/DL (6.4-8.2); eGFR 78 ML/MIN
[2021-07-19] MEDS: atorvastatin 20mg tablet PO SCH (07:41)
[2021-07-19] MEDS: levoTHYROXINE 75mcg tablet PO SCH (07:41)
[2021-07-19] MEDS: metoprolol succinate 25mg (24-HOUR) SR. Tablet PO SCH (07:42)
[2021-07-19] MEDS: lisinopril 20mg tablet PO SCH (07:50)
[2021-07-19] MEDS: K and/or MAG REPLACEMENT MC SCH ×2 (08:00→20:00)
[2021-07-19] MEDS: docusate sod 100mg capsule PO SCH ×2 (08:00→20:00)
[2021-07-19] MEDS: aspirin 81mg, enteric-coated 1 TAB TABLET.DR PO SCH (08:00)
[2021-07-19] MEDS: clopidogrel 75mg tablet PO SCH (08:00)
[2021-07-19] MEDS ORDERED: fentaNYL/PF 50MCG/1 ML 2ML syringe ONE (09:43)
[2021-07-19] MEDS ORDERED: midazolam 1 mg/ML 2ml injection ONE (09:43)
[2021-07-19] MEDS ORDERED: iohexol 350 MG/ML 50ML vial IV ONE ×2 (09:44→12:16)
[2021-07-19] MEDS ORDERED: iohexol 350MG/ML 100ml bottle IV ONE (09:44)
[2021-07-19] MEDS ORDERED: LIDOcaine 1% (10mg/ml)w/preservative injection 20ml MDV ONE (09:44)
[2021-07-19] MEDS ORDERED: diphenhydrAMINE 50 mg/ml inj ONE (11:59)
[2021-07-19] MEDS ORDERED: sodium chloride 0.45% 1,000 ML IV ONE (13:15)
[2021-07-19] MEDS ORDERED: ASPI-1071 PO (13:33)
[2021-07-19] MEDS ORDERED: CLOP75TA34 PO (13:33)
[2021-07-19] MEDS ORDERED: SPIR25TA PO (13:33)
[2021-07-19] MEDS ORDERED: ATOR20TA66 PO (13:33)
[2021-07-19] MEDS ORDERED: METO-395 PO (13:33)
--- NOTE | 2021-07-19 13:47 | NUR ---
promotional table spacer PAGER ID: [phone] MESSAGE: Re: [email or web address]. Room: 3014B. Pt will be lying flat till 1830. DC tomorrow morning? -[facility] #[id number] -Dr. Nguyen paged concerning DC orders
--- NOTE | 2021-07-19 18:20 | NUR ---
Patient in room PCU 3014. I have received report from LUIS Rodas and had the opportunity to ask questions and assume patient care.
--- NOTE | 2021-07-19 18:20 | NUR ---
Problems reprioritized. Patient report given, questions answered & plan of care reviewed with Maile SMITH.
[2021-07-19] MEDS: furosemide 40mg/4ml inj IV SCH (20:09)
[2021-07-19] MEDS: traZODone 50mg tablet PO SCH (20:09)
[2021-07-19] MEDS: spironolactone 25 MG tablet PO SCH (20:10)
[2021-07-20] VITALS (7 sets, daily range): BP systolic 135–149; BP diastolic 76–90
[2021-07-20 06:07] LABS: BASOPHILS # (AUTO) 0.1 X10'3 (0-0.2); BASOPHILS % (AUTO) 0.9 % (0-1); EOSINOPHILS # (AUTO) 0.2 X10'3 (0-0.9); EOSINOPHILS % (AUTO) 1.5 % (0-6); HEMATOCRIT 34.4 % (35.0-45.0); HEMOGLOBIN 11.4 g/dl (12.0-16.0); LYMPHOCYTES # (AUTO) 1.7 X10'3 (1.1-4.8); LYMPHOCYTES % (AUTO) 15.8 % (21-51); MEAN CORPUSCULAR HEMOGLOBIN 30.3 PG (27.0-31.0); MEAN CORPUSCULAR HGB CONC 33.2 g/dL (33.0-36.5); MEAN CORPUSCULAR VOLUME 91.3 FL (78-98); MEAN PLATELET VOLUME 8.7 FL (7.4-10.4); MONOCYTES # (AUTO) 0.9 X10'3 (0-0.9); MONOCYTES % (AUTO) 8.1 % (2-12); NEUTROPHILS # (AUTO) 7.9 X10'3 (1.8-7.7); NEUTROPHILS % (AUTO) 73.7 % (42-75); PLATELET COUNT 422 X10'3 (140-440); RED BLOOD COUNT 3.77 X10'6 (4.20-5.60); RED CELL DISTRIBUTION WIDTH 16.1 % (11.5-14.5); WHITE BLOOD COUNT 10.7 X10'3 (4.5-11.0)
[2021-07-20 06:27] LABS: ALANINE AMINOTRANSFERASE 64 U/L (12-78); ALBUMIN 2.6 G/DL (3.4-5.0); ALBUMIN/GLOBULIN RATIO 0.7 (1.1-1.5); ALKALINE PHOSPHATASE 180 IU/L (46-116); ANION GAP 9 (8-16); ASPARTATE AMINO TRANSFERASE 30 U/L (10-37); BILIRUBIN,TOTAL 0.3 MG/DL (0.1-1.0); BLOOD UREA NITROGEN 13 MG/DL (7-18); BUN/CREATININE RATIO 12.9 (6.6-38.0); CALCIUM 8.6 MG/DL (8.5-10.1); CHLORIDE 109 MMOL/L (99-107); CREATININE 1.01 MG/DL (0.40-0.90); GLUCOSE 104 MG/DL (70-104); POTASSIUM 4.5 MMOL/L (3.5-5.1); SODIUM 143 MMOL/L (135-145); TOTAL CARBON DIOXIDE 24.7 MMOL/L (24-32); TOTAL PROTEIN 6.3 G/DL (6.4-8.2); eGFR 55 ML/MIN
[2021-07-20] MEDS ORDERED: FURO-150 PO (06:34)
--- NOTE | 2021-07-20 06:40 | NUR ---
Problems reprioritized. Patient report given, questions answered & plan of care reviewed with Faiza RN.
[2021-07-20] MEDS: K and/or MAG REPLACEMENT MC SCH (07:37)
[2021-07-20] MEDS: docusate sod 100mg capsule PO SCH (08:00)
[2021-07-20] MEDS: clopidogrel 75mg tablet PO SCH (08:11)
[2021-07-20] MEDS: levoTHYROXINE 75mcg tablet PO SCH (08:11)
[2021-07-20] MEDS: aspirin 81mg, enteric-coated 1 TAB TABLET.DR PO SCH (08:11)
[2021-07-20] MEDS: lisinopril 20mg tablet PO SCH (08:12)
[2021-07-20] MEDS: atorvastatin 20mg tablet PO SCH (08:12)
[2021-07-20] MEDS: spironolactone 25 MG tablet PO SCH (08:12)
[2021-07-20] MEDS: furosemide 40mg/4ml inj IV SCH ×2 (08:13→11:22)
[2021-07-20] MEDS: metoprolol succinate 25mg (24-HOUR) SR. Tablet PO SCH (08:13)
[2021-07-20] MEDS: traMADol 50MG tablet PO PRN ×2 (09:25→14:58)
[2021-07-20] MEDS ORDERED: TRAM50TA2 PO (11:26)
--- NOTE | 2021-07-20 12:27 | NUR ---
Malnutrition consult: Pt admitted w/ post op complications s/p laparotomy, lysis of adhesions, and resection of portion of ileum on 07/07 per EMR. Pt appears well developed and well nourished per ED note. Current wt consistent w/ wt from last month June. Pt currently w/ 75-100% intake of meals on Heart Healthy diet. No edema noted. At this time pt does not meet minimum criteria for malnutrition, will continue to monitor. Addendum: 07/20/21 at [address] Amended: Links added.
== END 2021-07-20 17:51 | disposition home or self-care (01) | DRG 280 ==
LOC: ER 11:52 → ED HOLD 18:33 → PCU 3S 07-18 17:00
PROVIDERS: ADMIT Family Medicine; ATTEND Family Medicine
PROC: B32T1ZZ Computerized Tomography (CT Scan) of Left Pulmonary Artery using Low Osmolar Contrast (ICD-10-PCS; 2021-07-17)
PROC: B3201ZZ Computerized Tomography (CT Scan) of Thoracic Aorta using Low Osmolar Contrast (ICD-10-PCS; 2021-07-17)
PROC: B32S1ZZ Computerized Tomography (CT Scan) of Right Pulmonary Artery using Low Osmolar Contrast (ICD-10-PCS; 2021-07-17)
PROC: 4A023N7 Measurement of Cardiac Sampling and Pressure, Left Heart, Percutaneous Approach (ICD-10-PCS; principal; 2021-07-19)
PROC: B2111ZZ Fluoroscopy of Multiple Coronary Arteries using Low Osmolar Contrast (ICD-10-PCS; 2021-07-19)
PROC: B2151ZZ Fluoroscopy of Left Heart using Low Osmolar Contrast (ICD-10-PCS; 2021-07-19)
PROC: B41D1ZZ Fluoroscopy of Aorta and Bilateral Lower Extremity Arteries using Low Osmolar Contrast (ICD-10-PCS; 2021-07-19)
DX: I21.4 Non-ST elevation (NSTEMI) myocardial infarction (principal); I50.23 Acute on chronic systolic (congestive) heart failure; C18.9 Malignant neoplasm of colon, unspecified; C78.7 Secondary malignant neoplasm of liver and intrahepatic bile duct; C78.00 Secondary malignant neoplasm of unspecified lung; D64.9 Anemia, unspecified; E87.6 Hypokalemia; E03.9 Hypothyroidism, unspecified; E11.9 Type 2 diabetes mellitus without complications; G89.4 Chronic pain syndrome; I11.0 Hypertensive heart disease with heart failure; F17.210 Nicotine dependence, cigarettes, uncomplicated; I34.0 Nonrheumatic mitral (valve) insufficiency; Z20.822 Contact with and (suspected) exposure to COVID-19; R91.1 Solitary pulmonary nodule; I70.8 Atherosclerosis of other arteries; Z79.02 Long term (current) use of antithrombotics/antiplatelets; Z79.82 Long term (current) use of aspirin; Z79.890 Hormone replacement therapy; Z79.899 Other long term (current) drug therapy; Z85.038 Personal history of other malignant neoplasm of large intestine; Z88.1 Allergy status to other antibiotic agents; Z92.21 Personal history of antineoplastic chemotherapy; Z88.5 Allergy status to narcotic agent; Z82.49 Family history of ischemic heart disease and other diseases of the circulatory system; Z83.3 Family history of diabetes mellitus
CPT/HCPCS: 36415; 71045; 71275; 80053; 80061; 81001; 83036; 83735; 83880; 84100; 84443; 84484; 85025; 85347; 85379; 85610; 85730; 87635; 93005; 93306; 93458; 99152; 99153; 99285; A4620; A5120; A6258; C1760; C1769; C1894; G0378; J1200; J1644; J1940; J2001; J2250; J2405; J3010; J3475; J3480; J7030; Q9967

== ENCOUNTER 2023-10-04 08:26 | Outpatient (CLI) | payer MEDICARE ==
[~2023-10-04 08:26] MED LIST changes: +ASPI-1071 PO; +ATOR20TA66 PO; +CLOP75TA34 PO; +FURO-150 PO; +METO-395 PO; +SPIR25TA PO; +TRAM50TA2 PO
[2023-10-04] MEDS ORDERED: iohexol 350MG/ML 100ml bottle IV ONE (08:43)
== END 2023-10-04 23:59 | disposition home or self-care (01) ==
LOC: RAD 08:26
PROVIDERS: ATTEND Nurse Practitioner Family
DX: I65.23 Occlusion and stenosis of bilateral carotid arteries (principal); J43.9 Emphysema, unspecified; M47.812 Spondylosis without myelopathy or radiculopathy, cervical region
CPT/HCPCS: 70498; J3490; Q9967